=== PATIENT | female | born 2000 | race Caucasian/White ===

== ENCOUNTER 2018-01-03 02:22 | Inpatient (IN) | payer BC ==
[2018-01-03] MEDS ORDERED: Sodium Chloride 0.9% 10 ML Syringe FLUSH PRN (03:14)
[2018-01-03] MEDS ORDERED: Nalbuphine 20 MG/ML 1 ML Syringe IVPUSH PRN (03:14)
--- NOTE | 2018-01-03 06:08 | PCM.LDHP ---
L&D History of Present Illness - General Date of Service: 01/03/18 Admit Problem/Dx: Admission Diagnosis/Problem Admission Diagnosis/Problem Source of Information: Patient History Limitations: Reports: No Limitations - History of Present Illness Introduction:: 17 year old at 38w3 here for SROM clear fluid at home at 12:20 [place] time. PNC with Dr. 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: - Past Surgical History HEENT Surgical History: Reports: Oral Surgery Musculoskeletal Surgical History: Reports: Other (See Below) Other Musculoskeletal Surgeries/Procedures:: acl repair Social & Family History - Family History Family Medical History: Noncontributory - Tobacco Use Smoking Status *Q: Never Smoker Second Hand Smoke Exposure: No - Caffeine Use Caffeine Use: Reports: None - Recreational Drug Use Recreational Drug Use: No H&P Review of Systems - Review of Systems: Review Of Systems: See Below General: Reports: No Symptoms HEENT: Reports: No Symptoms Pulmonary: Reports: No Symptoms Cardiovascular: Reports: No Symptoms Gastrointestinal: Reports: No Symptoms Genitourinary: Reports: No Symptoms Musculoskeletal: Reports: No Symptoms Skin: Reports: No Symptoms Psychiatric: Reports: No Symptoms Neurological: Reports: No Symptoms Hematologic/Lymphatic: Reports: No Symptoms Immunologic: Reports: No Symptoms L&D Exam - Exam Exam: See Below - Vital Signs Vital Signs: Last Vital Signs Temp 36.9 C 01/03/18 03:14 Pulse 112 H 01/03/18 03:14 Resp 16 01/03/18 03:14 BP 133/85 01/03/18 03:14 Pulse Ox Weight: 83.007 kg - OB Specific Contraction Intensity: Mild to Moderate Heart Rate (FHR) Variability: Absent; Amplitude Undetectable Presentation: Vertex - Lopez Score Lopez Score Cervix Position: Posterior Lopez Score Consistency: Medium Lopez Score Effacement: 0-30% Lopez Score Dilation: 3-4 cm Lopez Score Infant's Station: -2 Lopez Score Total: 4 - Exam General: Alert, Oriented HEENT: PERRLA, Conjunctiva Clear, EACs Clear, EOMI, Hearing Intact, Mucosa Moist & [place], Nares Patent, Normal Nasal Septum, Posterior Pharynx Clear, TMs Clear Neck: Supple, Trachea Midline Lungs: Clear to Auscultation, Normal Respiratory Effort Cardiovascular: Regular Rate, Regular Rhythm GI/Abdominal Exam: Normal Bowel Sounds, Soft, Non-Tender, No Organomegaly, No Distention Genitourinary: Normal external exam, Normal bimanual exam, Normal speculum exam Back Exam: Normal Inspection, Full Range of Motion Extremities: Normal Inspection, Normal Range of Motion, Non-Tender, No Pedal Edema, Normal Capillary Refill Skin: Warm, Dry, Intact Neurological: Cranial Nerves Intact, Reflexes Equal Bilateral Psychiatric: Alert, Normal Affect, Normal Mood - Patient Data Lab Results Last 24 hrs: Laboratory Results - last 24 hr 01/03/18 Range/Units 03:40 WBC 14.58 H (3.98-10.04) K/mm3 RBC 4.29 (3.98-5.22) M/mm3 Hgb 10.5 L (11.2-15.7) gm/L Hct 33.2 L (34.1-44.9) % MCV 77.4 L (79.4-94.8) fl MCH 24.5 L (25.6-32.2) pg MCHC 31.6 L (32.2-35.5) g/dl RDW Std Deviation 41.9 (36.4-46.3) fL Plt Count 257 (182-369) K/mm3 MPV 9.6 (9.4-12.3) fl Neut % (Auto) 68.6 (34.0-71.1) % Lymph % (Auto) 15.9 L (19.3-51.7) % [place] % (Auto) 10.6 (4.7-12.5) % Eos % (Auto) 2.3 (0.7-5.8) Baso % (Auto) 0.5 (0.1-1.2) % Neut # (Auto) 9.99 H (1.56-6.13) K/mm3 Lymph # (Auto) 2.32 (1.18-3.74) K/mm3 [place] # (Auto) 1.55 H (0.24-0.36) K/mm3 Eos # (Auto) 0.34 (0.04-0.36) K/mm3 Baso # (Auto) 0.07 (0.01-0.08) K/mm3 Manual Slide Review Abnormal smear Result Diagrams: 01/03/18 03:40 Problem List Initiated/Reviewed/Updated: Yes Orders Last 24hrs: Active Orders 24 hr Category Date Time Status Activity as Tolerated [RC] PFP Care 01/03/18 03:14 Active Communication Order [RC] ASDIRECTED Care 01/03/18 03:14 Active Heart Tones [RC] ASDIRECTED Care 01/03/18 03:14 Active Notify Provider [RC] PFP Care 01/03/18 03:14 Active Notify Provider [RC] PRN Care 01/03/18 03:14 Active Peripheral IV Care [RC] . DIRECTED Care 01/03/18 03:14 Active Vital Signs [RC] PER UNIT ROUTINE Care 01/03/18 03:14 Active Lactated Ringers [Ringers, Lactated] 1,000 ml Med 01/03/18 03:15 Active IV ASDIRECTED Nalbuphine [Nubain] Med 01/03/18 03:14 Active 10 mg IVPUSH Q2H PRN Oxytocin/Lactated Ringers [Pitocin in LR 10 Units/1,000 Med 01/03/18 03:15 Active ML] 10 unit in 1,000 ml IV TITRATE Sodium Chloride 0.9% [Saline Flush] Med 01/03/18 03:14 Active 10 ml FLUSH ASDIRECTED PRN Electronic Heart Tones Ext w TOCO [WOMSER] Oth 01/03/18 03:14 Ordered Routine Electronic Heart Tones Internal [WOMSER] Per Unit Oth 01/03/18 03:14 Ordered Routine Peripheral IV Insertion Adult [OM.PC] Routine Oth 01/03/18 03:14 Ordered Resuscitation Status Routine Resus Stat 01/03/18 03:14 Ordered Medication Orders Lactated Ringer's (Ringers, Lactated) 1,000 mls @ 100 mls/hr IV ASDIRECTED CRAIG Oxytocin/Lactated Ringer's (Pitocin In Lr 10 Units/1,000 Ml) 10 unit in 1,000 mls @ 12 mls/hr IV TITRATE CRAIG; Protocol Nalbuphine HCl (Nubain) 10 mg IVPUSH Q2H PRN PRN Reason: Pain (moderate 4-6) Sodium Chloride (Saline Flush) 10 ml FLUSH ASDIRECTED PRN PRN Reason: Keep Vein Open Assessment/Plan Comment:: 17 year old with SROM. -Regular breakfast -Initiate pitocin when room available. - Ekaterina well but appear not significantly painful.
[2018-01-03] MEDS: Lactated Ringers 1,000 ML IV SCH ×2 (08:40→12:54)
[2018-01-03] MEDS: Oxytocin/Lactated Ringers 10 UNIT/1,000 ML BAG IV SCH (08:41)
[2018-01-03] MEDS ORDERED: ePHEDrine 50 MG/ML SDV IVPUSH PRN (12:15)
--- NOTE | 2018-01-03 12:19 | PCM.PREANE ---
Preanesthetic Assessment - Procedure Proposed Procedure: KAMLESH - Anesthesia/Transfusion/Family Hx Anesthesia History: Prior Anesthesia Without Reaction Family History of Anesthesia Reaction: No Transfusion History: No Prior Transfusion(s) Additional History: Scoliosis - Review of Systems General: No Symptoms Pulmonary: Other (Asthma, uses inhalers PRN) Cardiovascular: No Symptoms Gastrointestinal: No Symptoms Neurological: No Symptoms Other: Reports: None - Physical Assessment NPO Status Date: 01/03/18 NPO Status Time: 11:00 Pulse: 121 O2 Sat by Pulse Oximetry: 98 Respiratory Rate: 16 Blood Pressure: 137/89 Temperature: 37.0 C Vital Signs: Last Vital Signs Temp 36.9 C 01/03/18 03:14 Pulse 112 H 01/03/18 03:14 Resp 16 01/03/18 03:14 BP 133/85 01/03/18 03:14 Pulse Ox Height: 1.63 m Weight: 83.007 kg ASA Class: 2 Mental Status: Alert & Oriented x3 Airway Class: Mallampati = 1 Dentition: Reports: Normal Dentition Thyro-Mental Finger Breadths: 3 Mouth Opening Finger Breadths: 3 ROM/Head Extension: Full Lungs: Clear to Auscultation, Normal Respiratory Effort Cardiovascular: Regular Rate, Regular Rhythm - Lab Values: Laboratory Last Values WBC 14.58 K/mm3 (3.98-10.04) H 01/03/18 03:40 RBC 4.29 M/mm3 (3.98-5.22) 01/03/18 03:40 Hgb 10.5 gm/L (11.2-15.7) L 01/03/18 03:40 Hct 33.2 % (34.1-44.9) L 01/03/18 03:40 MCV 77.4 fl (79.4-94.8) L 01/03/18 03:40 MCH 24.5 pg (25.6-32.2) L 01/03/18 03:40 MCHC 31.6 g/dl (32.2-35.5) L 01/03/18 03:40 RDW Std Deviation 41.9 fL (36.4-46.3) 01/03/18 03:40 Plt Count 257 K/mm3 (182-369) 01/03/18 03:40 MPV 9.6 fl (9.4-12.3) 01/03/18 03:40 Neut % (Auto) 68.6 % (34.0-71.1) 01/03/18 03:40 Lymph % (Auto) 15.9 % (19.3-51.7) L 01/03/18 03:40 [place] % (Auto) 10.6 % (4.7-12.5) 01/03/18 03:40 Eos % (Auto) 2.3 (0.7-5.8) 01/03/18 03:40 Baso % (Auto) 0.5 % (0.1-1.2) 01/03/18 03:40 Neut # (Auto) 9.99 K/mm3 (1.56-6.13) H 01/03/18 03:40 Lymph # (Auto) 2.32 K/mm3 (1.18-3.74) 01/03/18 03:40 [place] # (Auto) 1.55 K/mm3 (0.24-0.36) H 01/03/18 03:40 Eos # (Auto) 0.34 K/mm3 (0.04-0.36) 01/03/18 03:40 Baso # (Auto) 0.07 K/mm3 (0.01-0.08) 01/03/18 03:40 Manual Slide Review Abnormal smear 01/03/18 03:40 - Allergies Allergies/Adverse Reactions: Allergies Allergy/AdvReac Type Severity Reaction Status Date / Time ibuprofen [From Motrin] Allergy Hives Verified 05/12/17 14:51 CDT - Blood Blood Available: No Product(s) Available: None - Anesthesia Plan Pre-Op Medication Ordered: None - Acknowledgements Anesthesia Type Planned: Epidural Pt an Appropriate Candidate for the Planned Anesthesia: Yes Alternatives and Risks of Anesthesia Discussed w Pt/Guardian: Yes Pt/Guardian Understands and Agrees with Anesthesia Plan: Yes PreAnesthesia Questionnaire - Past Health History Medical/Surgical History: Denies Medical/Surgical History Respiratory History: Reports: Asthma 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: - Past Surgical History HEENT Surgical History: Reports: Oral Surgery Musculoskeletal Surgical History: Reports: Other (See Below) Other Musculoskeletal Surgeries/Procedures:: acl repair - SUBSTANCE USE Smoking Status *Q: Never Smoker Second Hand Smoke Exposure: No Recreational Drug Use History: No - HOME MEDS Home Medications: Home Meds Albuterol [Proventil HFA] 2 puff INH DAILY PRN 01/03/18 [History] Vits #93/Iron Fum/FA [ Formula Tablet] 1 tab PO DAILY 01/03/18 [History] - CURRENT (IN HOUSE) MEDS Current Meds: Current Medications Ephedrine Sulfate (Ephedrine Sulfate) 5 mg IVPUSH ASDIRECTED PRN PRN Reason: Hypotension Fentanyl (Sublimaze) 100 mcg EPIDUR Q3H PRN PRN Reason: Pain Fentanyl/Bupivacaine HCl (Fentanyl/Bupivacaine/Ns 2 Mcg-0.125% 100 Ml) 100 ml EPIDUR ASDIRECTED CRAIG Lactated Ringer's (Ringers, Lactated) 1,000 mls @ 100 mls/hr IV ASDIRECTED CRAIG Last Admin: 01/03/18 08:40 Dose: 100 mls/hr Oxytocin/Lactated Ringer's (Pitocin In Lr 10 Units/1,000 Ml) 10 unit in 1,000 mls @ 12 mls/hr IV TITRATE CRAIG; Protocol Last Titration: 01/03/18 10:46 Dose: 6 munits/min, 36 mls/hr Nalbuphine HCl (Nubain) 10 mg IVPUSH Q2H PRN PRN Reason: Pain (moderate 4-6) Sodium Chloride (Saline Flush) 10 ml FLUSH ASDIRECTED PRN PRN Reason: Keep Vein Open
[2018-01-03] MEDS: Bupivacaine/fentaNYL/NS 100 ML Bag EPIDUR SCH ×3 (12:45→23:54)
[2018-01-03] MEDS: fentaNYL 100 MCG/2 ML SDV EPIDUR PRN (12:45)
[2018-01-03] MEDS ORDERED: Ondansetron 4 MG/2 ML SDV IVPUSH PRN ×2 (14:05→20:38)
[2018-01-04] MEDS ORDERED: Bupivacaine 0.25% 10 ML SDV ONE (01:00)
[2018-01-04] MEDS ORDERED: Lidocaine 1.5% with EPINEPHrine 1:200,000 5 ML Amp ONE (01:00)
[2018-01-04] MEDS: fentaNYL 100 MCG/2 ML SDV EPIDUR PRN ×2 (01:31→05:06)
[2018-01-04] MEDS: Oxytocin/Lactated Ringers 10 UNIT/1,000 ML BAG IV SCH ×2 (03:19→11:23)
[2018-01-04] MEDS: Bupivacaine/fentaNYL/NS 100 ML Bag EPIDUR SCH (06:23)
--- NOTE | 2018-01-04 07:39 | PCM.PNLD ---
Labor Progress Note - VS & Meds Vital Signs: Last Vital Signs Temp 37.0 C 01/03/18 12:19 Pulse 121 H 01/03/18 12:19 Resp 16 01/03/18 12:19 BP 137/89 01/03/18 12:19 Pulse Ox 98 01/03/18 12:19 Active Medications: Current Medications Ephedrine Sulfate (Ephedrine Sulfate) 5 mg IVPUSH ASDIRECTED PRN PRN Reason: Hypotension Fentanyl (Sublimaze) 100 mcg EPIDUR Q3H PRN PRN Reason: Pain Last Admin: 01/04/18 05:06 Dose: 100 mcg Fentanyl/Bupivacaine HCl (Fentanyl/Bupivacaine/Ns 2 Mcg-0.125% 100 Ml) 100 ml EPIDUR ASDIRECTED CRAIG Last Admin: 01/04/18 06:23 Dose: 100 ml Lactated Ringer's (Ringers, Lactated) 1,000 mls @ 100 mls/hr IV ASDIRECTED CRAIG Last Admin: 01/03/18 12:54 Dose: 100 mls/hr Oxytocin/Lactated Ringer's (Pitocin In Lr 10 Units/1,000 Ml) 10 unit in 1,000 mls @ 12 mls/hr IV TITRATE CRAIG; Protocol Last Admin: 01/04/18 03:19 Dose: 17 munits/min, 102 mls/hr Nalbuphine HCl (Nubain) 10 mg IVPUSH Q2H PRN PRN Reason: Pain (moderate 4-6) Ondansetron HCl (Zofran) 4 mg IVPUSH Q4H PRN PRN Reason: Nausea Last Admin: 01/03/18 20:45 Dose: 4 mg Sodium Chloride (Saline Flush) 10 ml FLUSH ASDIRECTED PRN PRN Reason: Keep Vein Open Discontinued Medications Ondansetron HCl (Zofran) 4 mg IVPUSH Q8H PRN PRN Reason: Nausea Last Admin: 01/03/18 15:53 Dose: 4 mg - Uterine Contractions Contraction Intensity: Mild to Moderate - Monitoring Heart Rate (FHR) Variability: Absent; Amplitude Undetectable Strip Review: Category I - Vaginal Exam Cervical Position: Posterior - Labor Progress (Free Text) Labor Progress: Now able to start pitocin this am. Continued leaking of clear fluid. Anticipate unless otherwise indicated
--- NOTE | 2018-01-04 07:41 | PCM.PNLD ---
Labor Progress Note - VS & Meds Vital Signs: Last Vital Signs Temp 37.0 C 01/03/18 12:19 Pulse 121 H 01/03/18 12:19 Resp 16 01/03/18 12:19 BP 137/89 01/03/18 12:19 Pulse Ox 98 01/03/18 12:19 Active Medications: Current Medications Ephedrine Sulfate (Ephedrine Sulfate) 5 mg IVPUSH ASDIRECTED PRN PRN Reason: Hypotension Fentanyl (Sublimaze) 100 mcg EPIDUR Q3H PRN PRN Reason: Pain Last Admin: 01/04/18 05:06 Dose: 100 mcg Fentanyl/Bupivacaine HCl (Fentanyl/Bupivacaine/Ns 2 Mcg-0.125% 100 Ml) 100 ml EPIDUR ASDIRECTED CRAIG Last Admin: 01/04/18 06:23 Dose: 100 ml Lactated Ringer's (Ringers, Lactated) 1,000 mls @ 100 mls/hr IV ASDIRECTED CRAIG Last Admin: 01/03/18 12:54 Dose: 100 mls/hr Oxytocin/Lactated Ringer's (Pitocin In Lr 10 Units/1,000 Ml) 10 unit in 1,000 mls @ 12 mls/hr IV TITRATE CRAIG; Protocol Last Admin: 01/04/18 03:19 Dose: 17 munits/min, 102 mls/hr Nalbuphine HCl (Nubain) 10 mg IVPUSH Q2H PRN PRN Reason: Pain (moderate 4-6) Ondansetron HCl (Zofran) 4 mg IVPUSH Q4H PRN PRN Reason: Nausea Last Admin: 01/03/18 20:45 Dose: 4 mg Sodium Chloride (Saline Flush) 10 ml FLUSH ASDIRECTED PRN PRN Reason: Keep Vein Open Discontinued Medications Ondansetron HCl (Zofran) 4 mg IVPUSH Q8H PRN PRN Reason: Nausea Last Admin: 01/03/18 15:53 Dose: 4 mg - Uterine Contractions Contraction Intensity: Moderate Uterine Resting Tone: Soft - Monitoring Monitor Mode: External Ultrasound Heart Rate (FHR) Variability: Absent; Amplitude Undetectable Strip Review: Category I - Vaginal Exam Dilation (cm): 5 Effacement (Percent): 80 Station: -4 Cervical Position: Posterior - Labor Progress (Free Text) Labor Progress: IUPC placed. doing well. Continue to increase pitocin until adequate contractions. Reassuring FHT
--- NOTE | 2018-01-04 07:42 | PCM.PNLD ---
Labor Progress Note - VS & Meds Vital Signs: Last Vital Signs Temp 37.0 C 01/03/18 12:19 Pulse 121 H 01/03/18 12:19 Resp 16 01/03/18 12:19 BP 137/89 01/03/18 12:19 Pulse Ox 98 01/03/18 12:19 Active Medications: Current Medications Ephedrine Sulfate (Ephedrine Sulfate) 5 mg IVPUSH ASDIRECTED PRN PRN Reason: Hypotension Fentanyl (Sublimaze) 100 mcg EPIDUR Q3H PRN PRN Reason: Pain Last Admin: 01/04/18 05:06 Dose: 100 mcg Fentanyl/Bupivacaine HCl (Fentanyl/Bupivacaine/Ns 2 Mcg-0.125% 100 Ml) 100 ml EPIDUR ASDIRECTED CRAIG Last Admin: 01/04/18 06:23 Dose: 100 ml Lactated Ringer's (Ringers, Lactated) 1,000 mls @ 100 mls/hr IV ASDIRECTED CRAIG Last Admin: 01/03/18 12:54 Dose: 100 mls/hr Oxytocin/Lactated Ringer's (Pitocin In Lr 10 Units/1,000 Ml) 10 unit in 1,000 mls @ 12 mls/hr IV TITRATE CRAIG; Protocol Last Admin: 01/04/18 03:19 Dose: 17 munits/min, 102 mls/hr Nalbuphine HCl (Nubain) 10 mg IVPUSH Q2H PRN PRN Reason: Pain (moderate 4-6) Ondansetron HCl (Zofran) 4 mg IVPUSH Q4H PRN PRN Reason: Nausea Last Admin: 01/03/18 20:45 Dose: 4 mg Sodium Chloride (Saline Flush) 10 ml FLUSH ASDIRECTED PRN PRN Reason: Keep Vein Open Discontinued Medications Ondansetron HCl (Zofran) 4 mg IVPUSH Q8H PRN PRN Reason: Nausea Last Admin: 01/03/18 15:53 Dose: 4 mg - Uterine Contractions Uterine Monitoring Mode: IUPC Contraction Intensity: Moderate Uterine Resting Tone: Soft - Monitoring Monitor Mode: External Ultrasound Heart Rate (FHR) Baseline: 145 Heart Rate (FHR) Variability: Absent; Amplitude Undetectable Strip Review: Category I - Vaginal Exam Dilation (cm): 9 Effacement (Percent): 100 Station: -4 Cervical Position: Posterior - Labor Progress (Free Text) Labor Progress: Epidural not controlling pain Anterior rim of cervix Anticipate
[2018-01-04] MEDS ORDERED: Lidocaine 1% 50 ML MDV ONE (10:06)
[2018-01-04] MEDS ORDERED: fentaNYL 100 MCG/2 ML SDV IVPUSH ONE (10:11)
--- NOTE | 2018-01-04 10:38 | PCM.SN ---
- Free Text/Narrative Note: Stage I - Patient presented with SROM. Progressed fairly slowly to complete with pitocin augmentation. Epidural for anesthesia. Stage II - of viable male, weight 7#9oz. Head delivered in controlled manner over intact perineum. Positive cry. APGARS 6/8. Body shoulders atraumatically. True knot in umbilical cord. Cord clamped and cut. Cord blood collected. Stage III - of intact placenta. 3VC. EBL 300. 2nd degree midline laceration repaired with 3-0 monocryl.
[2018-01-04] MEDS ORDERED: Benzocaine/Menthol 20%-0.5% Spray 56 GM Canister TOP PRN (11:24)
[2018-01-04] MEDS ORDERED: Lanolin 100% Cream 7 GM Tube TOP PRN (11:24)
[2018-01-04] MEDS ORDERED: Witch Hazel Medicated Pads 100/Jar TOP PRN (11:24)
[2018-01-04] MEDS ORDERED: Lidocaine 1% 50 ML MDV INJECT ONE (11:30)
[2018-01-04] MEDS: Acetaminophen 325 MG Tab PO PRN (12:33)
[2018-01-04] MEDS: Naproxen 500 MG Tab PO PRN (19:34)
[2018-01-05] MEDS: Acetaminophen 325 MG Tab PO PRN ×3 (00:08→18:30)
[2018-01-05] MEDS: Docusate Sodium 100 MG Cap PO PRN ×2 (00:08→19:29)
--- NOTE | 2018-01-05 10:33 | PCM.SN ---
- Free Text/Narrative Note: exam Afebrile, chest clear, uterus at umbilicus -1. No heavy vaginal bleeding. No leg cramping.
[2018-01-05] MEDS: Naproxen 500 MG Tab PO PRN ×2 (10:47→23:00)
--- NOTE | 2018-01-06 09:06 | PCM48HPAN ---
Post Anesthesia Note - EVALUATION WITHIN 48HRS OF ANESTHETIC Vital Signs in Normal Range: Yes Patient Participated in Evaluation: Yes Respiratory Function Stable: Yes Airway Patent: Yes Cardiovascular Function Stable: Yes Hydration Status Stable: Yes Pain Control Satisfactory: Yes Nausea and Vomiting Control Satisfactory: Yes Mental Status Recovered: Yes Pulse Rate: 79 Resp Rate: 16 Temperature: 36.7 C Blood Pressure: 124/78 - COMMENTS/OBSERVATIONS Free Text/Narrative:: no anesthesia complications noted
--- NOTE | 2018-01-06 09:39 | PCM.DCSUM1 ---
Discharge Summary - Hospital Course Free Text/Narrative:: [facility] Provider Simple Note Patient Name: KEAGAN MUNOZ Date of : 89 Patient Status: Inpatient Attending Provider: Florencia Cee Date: 01/04/18 10:34 Initialization Date: 01/04/18 10:34 - Free Text/Narrative Note: Stage I - Patient presented with SROM. Progressed fairly slowly to complete with pitocin augmentation. Epidural for anesthesia. Stage II - of viable male, weight 7#9oz. Head delivered in controlled manner over intact perineum. Positive cry. APGARS 6/8. Body shoulders atraumatically. True knot in umbilical cord. Cord clamped and cut. Cord blood collected. Stage III - of intact placenta. 3VC. EBL 300. 2nd degree midline laceration repaired with 3-0 monocryl. HPI Initial Comments: [facility] Provider Simple Note Patient Name: EKAGAN MUNOZ Date of : [birth year] Patient Status: Inpatient Attending Provider: Florencia Cee Date: 01/04/18 10:34 Initialization Date: 01/04/18 10:34 - Free Text/Narrative Note: Stage I - Patient presented with SROM. Progressed fairly slowly to complete with pitocin augmentation. Epidural for anesthesia. Stage II - of viable male, weight 7#9oz. Head delivered in controlled manner over intact perineum. Positive cry. APGARS 6/8. Body shoulders atraumatically. True knot in umbilical cord. Cord clamped and cut. Cord blood collected. Stage III - of intact placenta. 3VC. EBL 300. 2nd degree midline laceration repaired with 3-0 monocryl. Brief History: [facility] . Provider Simple Note. Patient Name : KEAGAN MUNOZical Record Number: [id number]. Date of : Patient Status: Inpatient. Attending Provider: Florencia CeeAccount Number: [id number]. Date: 01/04/18 10:34Initialization Date: 01/04/18 10:34. - Free Text/Narrative. Note: Stage I - Patient presented with SROM. Progressed fairly slowly to complete with pitocin augmentation. Epidural for anesthesia. Stage II - of viable male, weight 7#9oz. Head delivered in controlled manner over intact perineum. Positive cry. APGARS 6/8. Body shoulders atraumatically. True knot in umbilical cord. Cord clamped and cut. Cord blood collected. Stage III - of intact placenta. 3VC. EBL 300. 2nd degree midline laceration repaired with 3-0 monocryl. Diagnosis: Stroke: No - Discharge Data Discharge Date: 01/06/18 Discharge Disposition: Home, Self-Care 01 Condition: Good - Discharge Diagnosis/Problem(s) (1) 38 weeks gestation of SNOMED Code(s): 45669418 ICD Code: Z3A.38 - 38 WEEKS GESTATION OF Status: Acute Current Visit: Yes (2) Anemia-delivered w/ complication SNOMED Code(s): 38483047, 322444194 ICD Code: O99.03 - ANEMIA COMPLICATING THE PUERPERIUM Status: Acute Current Visit: Yes (3) Second degree laceration of perineum, delivered, current hospitalization SNOMED Code(s): 321305115 ICD Code: O70.1 - SECOND DEGREE PERINEAL LACERATION DURING DELIVERY Status : Acute Current Visit: Yes - Patient Summary/Data Complications: none Consults: none Hospital Course: uneventful - Patient Instructions Diet: Regular Diet as Tolerated Driving: Do Not Drive (x48 hrs) Showering/Bathing: May Shower Notify Provider of: Fever, Increased Pain, Swelling and Redness, Drainage, Nausea and/or Vomiting - Discharge Plan Home Medications: Home Meds Albuterol [Proventil HFA] 2 puff INH DAILY PRN 01/03/18 [History] Vits #93/Iron Fum/FA [ Formula Tablet] 1 tab PO DAILY 01/03/18 [History] Referrals: Jolly Trujillo MD [Physician] - - Discharge Summary/Plan Comment DC Time >30 min.: No - Patient Data Vitals - Most Recent: Last Vital Signs Temp 98.1 F 01/06/18 09:06 Pulse 79 01/06/18 09:06 Resp 16 01/06/18 09:06 BP 124/78 01/06/18 09:06 Pulse Ox 98 01/06/18 05:32 Weight - Most Recent: 183 lb Med Orders - Current: Current Medications Acetaminophen (Tylenol) 650 mg PO Q4H PRN PRN Reason: mild pain or fever Last Admin: 01/05/18 18:30 Dose: 650 mg Benzocaine/Menthol (Dermoplast Pain Relief [place]) 0 gm TOP ASDIRECTED PRN PRN Reason: Perineal Comfort Measure Last Admin: 01/04/18 12:33 Dose: 1 can Docusate Sodium (Colace) 100 mg PO BID PRN PRN Reason: Constipation Last Admin: 01/05/18 19:29 Dose: 100 mg Emollient Ointment (Lansinoh Hpa) 0 gm TOP ASDIRECTED PRN PRN Reason: Sore Nipples Last Admin: 01/05/18 21:34 Dose: 1 tube Naproxen (Naprosyn) 500 mg PO Q12HR PRN PRN Reason: Pain Last Admin: 01/05/18 23:00 Dose: 500 mg Witch Edie (Tucks) 1 pad TOP ASDIRECTED PRN PRN Reason: Hemorrhoid pain Last Admin: 01/04/18 12:33 Dose: 1 box Discontinued Medications Bupivacaine HCl (Sensorcaine-Mpf 0.25%) 30 ml .ROUTE .STK-MED ONE Stop: 01/04/18 01:01 Ephedrine Sulfate (Ephedrine Sulfate) 5 mg IVPUSH ASDIRECTED PRN PRN Reason: Hypotension Fentanyl (Sublimaze) 100 mcg EPIDUR Q3H PRN PRN Reason: Pain Last Admin: 01/04/18 05:06 Dose: 100 mcg Fentanyl (Sublimaze) 50 mcg IVPUSH ONETIME ONE Stop: 01/04/18 10:12 Last Admin: 01/04/18 10:15 Dose: 50 mcg Fentanyl/Bupivacaine HCl (Fentanyl/Bupivacaine/Ns 2 Mcg-0.125% 100 Ml) 100 ml EPIDUR ASDIRECTED [facility] Last Admin: 01/04/18 06:23 Dose: 100 ml Lactated Ringer's (Ringers, Lactated) 1,000 mls @ 100 mls/hr IV ASDIRECTED [facility] Last Infusion: 01/04/18 09:55 Dose: Infused Oxytocin/Lactated Ringer's (Pitocin In Lr 10 Units/1,000 Ml) 10 unit in 1,000 mls @ 12 mls/hr IV TITRATE CRAIG; Protocol Last Admin: 01/04/18 11:23 Dose: 500 munits/min, 3,000 mls/hr Lidocaine HCl (Xylocaine 1%) Confirm Administered Dose 50 ml .ROUTE .[employer] ONE Stop: 01/04/18 10:07 Last Admin: 01/04/18 17:09 Dose: Not Given Lidocaine HCl (Xylocaine 1%) 50 ml INJECT ONETIME ONE Stop: 01/04/18 11:31 Last Admin: 01/04/18 10:15 Dose: 50 ml Lidocaine/Epinephrine (Xylocaine-Mpf 1.5% W/Epinephrine 1:200,000) 10 ml .ROUTE .[employer] ONE Stop: 01/04/18 01:01 Nalbuphine HCl (Nubain) 10 mg IVPUSH Q2H PRN PRN Reason: Pain (moderate 4-6) Ondansetron HCl (Zofran) 4 mg IVPUSH Q8H PRN PRN Reason: Nausea Last Admin: 01/03/18 15:53 Dose: 4 mg Ondansetron HCl (Zofran) 4 mg IVPUSH Q4H PRN PRN Reason: Nausea Last Admin: 01/03/18 20:45 Dose: 4 mg Sodium Chloride (Saline Flush) 10 ml FLUSH ASDIRECTED PRN PRN Reason: Keep Vein Open
[2018-01-06] MEDS: Naproxen 500 MG Tab PO PRN (10:40)
== END 2018-01-06 10:45 | disposition home or self-care (01) | DRG 560 ==
LOC: JD.OBCHECK 02:22 → JD.OB 02:35 → JD.OBCHECK 08:59 → JD.OB 09:00 → OBSVTOIN 01-04 09:55 → JD.OB 01-04 10:00
PROVIDERS: ADMIT Obstetrics & Gynecology; ATTEND Obstetrics & Gynecology
PROC: 10E0XZZ Delivery of Products of Conception, External Approach (ICD-10-PCS; principal; 2018-01-04)
PROC: 0KQM0ZZ Repair Perineum Muscle, Open Approach (ICD-10-PCS; 2018-01-04)
PROC: 00HU33Z Insertion of Infusion Device into Spinal Canal, Percutaneous Approach (ICD-10-PCS; 2018-01-04)
PROC: 3E0R3BZ Introduction of Anesthetic Agent into Spinal Canal, Percutaneous Approach (ICD-10-PCS; 2018-01-04)
DX: O42.02 Full-term premature rupture of membranes, onset of labor within 24 hours of rupture (principal); Z3A.38 38 weeks gestation of pregnancy; Z37.0 Single live birth; O99.52 Diseases of the respiratory system complicating childbirth; J45.909 Unspecified asthma, uncomplicated; O69.2XX0 Labor and delivery complicated by other cord entanglement, with compression, not applicable or unspecified; O70.1 Second degree perineal laceration during delivery; O99.03 Anemia complicating the puerperium; Z88.8 Allergy status to other drugs, medicaments and biological substances
CPT/HCPCS: 36415; 51702; 51703; 59025; 59300; 59409; 85025; 86592; A9270-GY; J2405; J2590; J3010; J7120

== ENCOUNTER 2020-12-18 00:33 | Inpatient (IN) | payer MEDICAID ==
[2020-12-18] MEDS ORDERED: Nalbuphine 10 MG/1 ML Vial IVPUSH PRN (01:18)
[2020-12-18] MEDS ORDERED: Ampicillin 2 GM in Sodium Chloride 0.9% 100 ML IV ONE (01:18)
[2020-12-18] MEDS ORDERED: Sodium Chloride 0.9% 10 ML Syringe FLUSH PRN (01:18)
[2020-12-18] MEDS ORDERED: Acetaminophen 325 MG Tab PO PRN (01:28)
[2020-12-18] MEDS ORDERED: Oxytocin/Lactated Ringers 10 UNIT/1,000 ML BAG IV SCH ×3 (01:30→16:26)
[2020-12-18] MEDS: Ondansetron 4 MG/2 ML SDV IVPUSH PRN ×2 (02:29→10:13)
[2020-12-18] MEDS: Ampicillin 1 GM in Sodium Chloride 0.9% 100 ML IV SCH ×3 (06:06→14:10)
--- NOTE | 2020-12-18 08:24 | PCM.LDHP ---
L&D History of Present Illness - General Date of Service: 12/18/20 Admit Problem/Dx: Patient Status Order with Admit Dx/Problem 12/18/20 00:41 Patient Status [ADT] Routine 12/18/20 01:19 Patient Status [ADT] Routine Admission Diagnosis/Problem Admission Diagnosis/Problem Source of Information: Patient History Limitations: Reports: No Limitations - History of Present Illness Introduction:: Dia Lea is a 20-year-old -0-0-1 female at 38 weeks 6 days ([place] 12/26/2020) by a 6-week ultrasound who presents with regular contractions that started in the evening of 12/09/2020. They continued throughout the evening and were about 2 to 3 minutes apart and quite painful. The contractions were lasting for 30 to 60 seconds per patient's report. She states that they were consistent for several hours and presented to labor and delivery for evaluation. She denies any leaking of fluid or vaginal bleeding. She reports that she did have some blood on the toilet paper with wiping this morning. She reports good movement. Timing/Duration: Reports: constant/continuous (Contractions about every 2 to 3 minutes and were quite painful) Location, : Reports: Lower back, Pelvic Quality: Reports: Pressure, Throbbing Severity: Severe Pain Score: 7 Worsens with: Reports: None Associated Symptoms: Denies: vaginal bleeding, vaginal discharge, vaginal fluid Present Illness Comments:: Dia Lea is a 20-year-old -0-0-1 female at 38 weeks 6 days ([place] 12/26/2020) by a 6-week ultrasound who presents with regular contractions that started in the evening of 12/09/2020. She has had routine care with Dr. Cee starting at 6 weeks gestational age. She denies any complications during this . She had Tdap vaccine done on 10/15/2020. She reports that she had vaginal yeast infections and urinary tract infections during the but was treated for these and has not had any hospitalizations as a result of the urinary tract infections. She had a chlamydia infection prior to that was treated and tested negative per her report. Her care has been with Dr. Cee and is complicated by: * History of preeclampsia in previous . Reports that it was mild preeclampsia and did not have any significant complications. * History of depression after her last . Not currently on treatment for depression at this time. * Rubella equivocal and should be offered MMR vaccine after delivery * History of asthma and is not requiring albuterol treatments at this time * History of chlamydia x2 in 2016 and 2019. Reports that she was diagnosed with chlamydia prior to and was treated and tested negative. 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 G1: 01/04/2018, 38 weeks 3 days, , 7 pounds 9 ounces, male infant, induced for mild preeclampsia G2: Current labs Blood type: A+ Antibody screen: Negative First trimester hematocrit/hemoglobin: 37.4%/13.0 on 06/08/2020 Platelets: 280 on 06/08/2020 Rubella status: Equivocal Hepatitis B surface antigen: Negative RPR: Negative Hepatitis C: Negative HIV: Negative Gonorrhea: Negative Chlamydia: Positive on 01/27/2020, patient reports treated and tested negative after this test One hour glucose tolerance test: 142 Second trimester hemoglobin: 11.3 on 10/05/2020 Platelets: 260 on 10/05/2020 3-hour glucose test: Negative per report GBS status: Positive GBS bacteriuria on urine culture on 12/01/2020 - Related Data Allergies/Adverse Reactions: Allergies Allergy/AdvReac Type Severity Reaction Status Date / Time ibuprofen [From Motrin] Allergy Anaphylactic Verified 12/18/20 03:17 Shock Home Medications: Home Meds Albuterol [Proventil HFA] 2 puff INH DAILY PRN 01/03/18 [History] Vits #93/Iron Fum/FA [ Formula Tablet] 1 tab PO DAILY 01/03/18 [History] Fluticasone Propionate [Flovent HFA] 1 puff INH BID PRN 12/01/20 [History] cephALEXin [Keflex] 500 mg PO WITHMEALSANDBED 12/18/20 [History] Past Medical History Respiratory History: Reports: Asthma Genitourinary History: Reports: UTI, Recurrent Other Genitourinary History: UTI and yeast infection MECHANICAL TEST ENGINEER History: Reports: : 2 Para: 1 Neurological History: Reports: Seizure Other Neuro History: Hx of seizures - Past Surgical History HEENT Surgical History: Reports: Oral Surgery Other HEENT Surgeries/Procedures: wisdom teeth Musculoskeletal Surgical History: Reports: Other (See Below) Other Musculoskeletal Surgeries/Procedures:: acl repair. Scoliosis Social & Family History - Family History Family Medical History: No Pertinent Family History - Tobacco Use Tobacco Use Status *Q: Never Tobacco User Second Hand Smoke Exposure: No - Tobacco Core Measures Tobacco Use/Smoking Within Last 30 Days: No Smokeless Tobacco Use in Last 30 Days: No - Caffeine Use Caffeine Use: Reports: None - Alcohol Use Alcohol Use History: No - Recreational Drug Use Recreational Drug Use: No - Living Situation & Occupation Living situation: Reports: , with Spouse, with Family H&P Review of Systems - Review of Systems: Review Of Systems: See Below General: Denies: Fever, Chills, Malaise, Weakness, Fatigue HEENT: Denies: Headaches, Rhinitis, Post Nasal Drip, Sinus Congestion, Sore Throat, Visual Changes Pulmonary: Denies: Shortness of Breath, Wheezing, Pleuritic Chest Pain, Cough Cardiovascular: Denies: Chest Pain, Palpitations, Dyspnea on Exertion, Orthopnea Gastrointestinal: Denies: Abdominal Pain, Constipation, Diarrhea, Nausea, Vomiting Genitourinary: Denies: Dysuria, Frequency, Burning, Pain, Urgency Musculoskeletal: Reports: Back Pain (And hip pain of ) Skin: Denies: Rash, Lesions Psychiatric: Denies: Depression, Anxiety L&D Exam - Exam Exam: See Below - Vital Signs Vital Signs: Last Vital Signs Temp 37.0 C 12/18/20 00:41 Pulse 107 H 12/18/20 00:41 Resp 16 12/18/20 00:41 BP 126/70 12/18/20 00:41 Pulse Ox 99 12/18/20 00:41 Weight: 87.09 kg - OB Specific Contraction Duration (sec): 45-75 Contraction Frequency (min): 3-5 Contraction Intensity: Moderate to Strong Movement: Active Heart Tones: Present Heart Tones per Min: 135 (+15 x 15 accelerations, no decelerations) Heart Rate (FHR) Variability: Moderate (6-25 bmp) Presentation: Vertex Estimated Weight: 7.5-8 lbs by Tai - Lopez Score Lopez Score Cervix Position: Midposition Lopez Score Consistency: Soft Lopez Score Effacement: >80% (90%) Lopez Score Dilation: > 5 cm (6 cm) Lopez Score Infant's Station: -2 Lopez Score Total: 10 - Exam General: Alert, Oriented HEENT: Conjunctiva Clear, EOMI Neck: Supple, Trachea Midline Lungs: Clear to Auscultation, Normal Respiratory Effort Cardiovascular: Regular Rate, Regular Rhythm GI/Abdominal Exam: Soft, Non-Tender, No Distention, Other (Gravid). No: Guarding, Rigid, Rebound Genitourinary: Normal external exam Extremities: Normal Inspection, Non-Tender, Pedal Edema (trace in bilateral lower extremities) Skin: Warm, Dry, Intact Psychiatric: Alert, Normal Affect, Normal Mood - Patient Data Lab Results Last 24 hrs: Laboratory Results - last 24 hr 12/18/20 12/18/20 12/18/20 Range/Units 01:42 01:45 01:45 WBC 12.49 H (3.98-10.04) K/mm3 RBC 4.19 (3.98-5.22) M/mm3 Hgb 10.6 L (11.2-15.7) gm/dl Hct 33.3 L (34.1-44.9) % MCV 79.5 (79.4-94.8) fl MCH 25.3 L (25.6-32.2) pg MCHC 31.8 L (32.2-35.5) g/dl RDW Std Deviation 43.6 (36.4-46.3) fL Plt Count 246 (182-369) K/mm3 MPV 10.0 (9.4-12.3) fl Neut % (Auto) 67.0 (34.0-71.1) % Lymph % (Auto) 21.4 (19.3-51.7) % [place] % (Auto) 8.5 (4.7-12.5) % Eos % (Auto) 1.8 (0.7-5.8) Baso % (Auto) 0.3 (0.1-1.2) % Neut # (Auto) 8.37 H (1.56-6.13) K/mm3 Lymph # (Auto) 2.67 (1.18-3.74) K/mm3 [place] # (Auto) 1.06 H (0.24-0.36) K/mm3 Eos # (Auto) 0.22 (0.04-0.36) K/mm3 Baso # (Auto) 0.04 (0.01-0.08) K/mm3 Manual Slide Review Abnormal smear SARS-CoV-2 RNA (JOVANI) Negative (NEGATIVE) Blood Type A POSITIVE Gel Antibody Screen Negative Result Diagrams: 12/18/20 01:45 - Problem List (1) GBS bacteriuria SNOMED Code(s): 69910465 ICD Code: R82.71 - BACTERIURIA Status: Acute Current Visit: Yes (2) History of maternal Chlamydia infection, currently in third trimester SNOMED Code(s): 64162458, 63211974 ICD Code: O09.293 - SUPRVSN OF PREG W POOR REPRODCTV OR OBSTET HX, THIRD TRI Status: Acute Current Visit: Yes (3) History of depression SNOMED Code(s): 104871558 ICD Code: Z87.59 - PERSONAL HISTORY OF COMP OF PREG, CHLDBRTH AND THE PUERP; Z86.59 - PERSONAL HISTORY OF OTHER MENTAL AND BEHAVIORAL DISORDERS Status: Acute Current Visit: Yes (4) History of depression, currently in third trimester SNOMED Code(s): 78239346 ICD Code: O99.891 - OTH DISEASES AND CONDITIONS COMPLICATING ; Z86.59 - PERSONAL HISTORY OF OTHER MENTAL AND BEHAVIORAL DISORDERS Status: Acute Current Visit: Yes (5) 38 weeks gestation of SNOMED Code(s): 28550026 ICD Code: Z3A.38 - 38 WEEKS GESTATION OF Status: Acute Current Visit: No (6) Rubella non-immune status, antepartum SNOMED Code(s): 803230025 ICD Code: O99.891 - OTH DISEASES AND CONDITIONS COMPLICATING ; Z28.3 - UNDERIMMUNIZATION STATUS Status: Acute Current Visit: Yes Problem List Initiated/Reviewed/Updated: Yes Orders Last 24hrs: Active Orders 24 hr Category Date Time Status Patient Status [ADT] Routine ADT 12/18/20 00:41 Active Patient Status [ADT] Routine ADT 12/18/20 01:19 Active Activity as Tolerated [RC] PFP Care 12/18/20 01:19 Active Communication Order [RC] ASDIRECTED Care 12/18/20 01:19 Active Heart Tones [RC] ASDIRECTED Care 12/18/20 01:19 Active Notify Provider [RC] PFP Care 12/18/20 01:19 Active Notify Provider [RC] PRN Care 12/18/20 01:19 Active Peripheral IV Care [RC] Q4HR Care 12/18/20 01:19 Active Vital Signs [RC] PER UNIT ROUTINE Care 12/18/20 00:41 Active Vital Signs [RC] PER UNIT ROUTINE Care 12/18/20 01:19 Active Regular Diet [DIET] Diet 12/18/20 Breakfast Active PATIENT RETYPE [BBK] Routine Lab 12/18/20 03:50 Ordered RAPID PLASMA REAGIN,RPR [CHEM] Routine Lab 12/18/20 01:45 Received Acetaminophen [TylenoL] Med 12/18/20 01:28 Active 650 mg PO Q4H PRN Ampicillin 1 gm Med 12/18/20 06:00 Active Sodium Chloride 0.9% [Normal Saline] 100 ml IV Q4H Lactated Ringers [Ringers, Lactated] 1,000 ml Med 12/18/20 01:30 Active IV ASDIRECTED Nalbuphine [Nubain] Med 12/18/20 01:18 Active 10 mg IVPUSH Q2H PRN Ondansetron [Zofran] Med 12/18/20 02:09 Active 4 mg IVPUSH Q8H PRN Oxytocin/Lactated Ringers [Pitocin in LR 10 Units/1,000 Med 12/18/20 01:30 Active ML] 10 unit in 1,000 ml IV CONTINUOUS Sodium Chloride 0.9% [Saline Flush] Med 12/18/20 01:18 Active 10 ml FLUSH ASDIRECTED PRN Electronic Heart Tones Ext w TOCO [WOMSER] Oth 12/18/20 01:19 Ordered Routine Electronic Heart Tones Internal [WOMSER] Per Unit Oth 12/18/20 01:19 Ordered Routine Peripheral IV Insertion Adult [OM.PC] Routine Oth 12/18/20 01:19 Ordered Resuscitation Status Routine Resus Stat 12/18/20 00:41 Ordered Medication Orders Acetaminophen (Acetaminophen 325 Mg Tab) 650 mg PO Q4H PRN PRN Reason: Headache/Pain Last Admin: 12/18/20 02:29 Dose: 650 mg Documented by: SEBASTIAN Lactated Ringer's (Ringers, Lactated) 1,000 mls @ 100 mls/hr IV ASDIRECTED CRAIG Ampicillin Sodium 1 gm/ Sodium (Chloride) 100 mls @ 200 mls/hr IV Q4H CRAIG Last Admin: 12/18/20 06:06 Dose: 200 mls/hr Documented by: SEBASTIAN Oxytocin/Lactated Ringer's (Pitocin In Lr 10 Units/1,000 Ml) 10 unit in 1,000 mls @ 500 mls/hr IV CONTINUOUS CRAIG Nalbuphine HCl (Nalbuphine 10 Mg/1 Ml Vial) 10 mg IVPUSH Q2H PRN PRN Reason: Pain Ondansetron HCl (Ondansetron 4 Mg/2 Ml Sdv) 4 mg IVPUSH Q8H PRN PRN Reason: Nausea Last Admin: 12/18/20 02:29 Dose: 4 mg Documented by: SEBASTIAN Sodium Chloride (Sodium Chloride 0.9% 10 Ml Syringe) 10 ml FLUSH ASDIRECTED PRN PRN Reason: Keep Vein Open Assessment/Plan Comment:: Dia Lea is a 20-year-old -0-0-1 female at 38 weeks 6 days with spontaneous labor with complicated by history of preeclampsia in first , history of depression, rubella equivocal status and s hould receive MMR vaccine after delivery, history of chlamydia infection prior to and history of asthma Refer to observation for spontaneous labor with cervical change from when she was seen in the office this week. Cervical exam on admission was 4 to 5 cm with regular contraction pattern. Artificial rupture membranes performed at this morning with return of moderate amount of clear fluid. Mother and tolerated procedure without difficulty. Cervical exam was at 6/90/-2/soft/mid position with the exam. Start Pitocin for augmentation of labor if she does not have any significant cervical change after artificial rupture membranes Continuous monitoring Place IV and have Lactated Ringer's at 125 ml/hr May have small amounts of regular diet Activity as tolerated May have epidural as desired Plans to breast-feed after delivery Patient was started on ampicillin 2 g and will have 1 g every 4 hours after for GBS prophylaxis Anticipate vaginal delivery unless otherwise indicated Bc Doll MD 8:33 AM 12/18/2020
[2020-12-18] MEDS: Lactated Ringers 1,000 ML IV SCH ×3 (08:29→12:04)
[2020-12-18] MEDS ORDERED: Bupivacaine/fentaNYL/NS 100 ML Bag EPIDUR PRN (08:48)
[2020-12-18] MEDS ORDERED: diphenhydrAMINE 50 MG/ML SDV IVPUSH PRN (08:48)
[2020-12-18] MEDS ORDERED: fentaNYL 100 MCG/2 ML SDV EPIDUR PRN (08:48)
--- NOTE | 2020-12-18 09:48 | PCM.PREANE ---
Preanesthetic Assessment - Procedure Proposed Procedure: karey - Anesthesia/Transfusion/Family Hx Anesthesia History: Prior Anesthesia Without Reaction Family History of Anesthesia Reaction: No Transfusion History: No Prior Transfusion(s) - Review of Systems General: No Symptoms Pulmonary: No Symptoms Cardiovascular: No Symptoms Gastrointestinal: Abdominal Pain (contractions) Neurological: Seizure (dehydration- last one 8 years ago) - Physical Assessment Vital Signs: Last Vital Signs Temp 98.6 F 12/18/20 00:41 Pulse 107 H 12/18/20 00:41 Resp 16 12/18/20 00:41 BP 126/70 12/18/20 00:41 Pulse Ox 99 12/18/20 00:41 Height: 5 ft 5 in Weight: 87.09 kg ASA Class: 2 Mental Status: Alert & Oriented x3 Airway Class: Mallampati = 1 Dentition: Reports: Normal Dentition Thyro-Mental Finger Breadths: 3 Mouth Opening Finger Breadths: 3 ROM/Head Extension: Full Lungs: Clear to Auscultation, Normal Respiratory Effort Cardiovascular: Regular Rate, Regular Rhythm - Lab Values: Laboratory Last Values WBC 12.49 K/mm3 (3.98-10.04) H 12/18/20 01:45 RBC 4.19 M/mm3 (3.98-5.22) 12/18/20 01:45 Hgb 10.6 gm/dl (11.2-15.7) L 12/18/20 01:45 Hct 33.3 % (34.1-44.9) L 12/18/20 01:45 MCV 79.5 fl (79.4-94.8) 12/18/20 01:45 MCH 25.3 pg (25.6-32.2) L 12/18/20 01:45 MCHC 31.8 g/dl (32.2-35.5) L 12/18/20 01:45 RDW Std Deviation 43.6 fL (36.4-46.3) 12/18/20 01:45 Plt Count 246 K/mm3 (182-369) 12/18/20 01:45 MPV 10.0 fl (9.4-12.3) 12/18/20 01:45 Neut % (Auto) 67.0 % (34.0-71.1) 12/18/20 01:45 Lymph % (Auto) 21.4 % (19.3-51.7) 12/18/20 01:45 [place] % (Auto) 8.5 % (4.7-12.5) 12/18/20 01:45 Eos % (Auto) 1.8 (0.7-5.8) 12/18/20 01:45 Baso % (Auto) 0.3 % (0.1-1.2) 12/18/20 01:45 Neut # (Auto) 8.37 K/mm3 (1.56-6.13) H 12/18/20 01:45 Lymph # (Auto) 2.67 K/mm3 (1.18-3.74) 12/18/20 01:45 [place] # (Auto) 1.06 K/mm3 (0.24-0.36) H 12/18/20 01:45 Eos # (Auto) 0.22 K/mm3 (0.04-0.36) 12/18/20 01:45 Baso # (Auto) 0.04 K/mm3 (0.01-0.08) 12/18/20 01:45 Manual Slide Review Abnormal smear 12/18/20 01:45 SARS-CoV-2 RNA (JOVANI) Negative (NEGATIVE) 12/18/20 01:42 Blood Type A POSITIVE 12/18/20 01:45 Gel Antibody Screen Negative 12/18/20 01:45 - Allergies Allergies/Adverse Reactions: Allergies Allergy/AdvReac Type Severity Reaction Status Date / Time ibuprofen [From Motrin] Allergy Anaphylactic Verified 12/18/20 03:17 Shock - Blood Blood Available: No - Acknowledgements Anesthesia Type Planned: Epidural Pt an Appropriate Candidate for the Planned Anesthesia: Yes Alternatives and Risks of Anesthesia Discussed w Pt/Guardian: Yes Pt/Guardian Understands and Agrees with Anesthesia Plan: Yes PreAnesthesia Questionnaire - Past Health History Medical/Surgical History: Denies Medical/Surgical History Cardiovascular History: Reports: None Respiratory History: Reports: Asthma Gastrointestinal History: Reports: GERD Genitourinary History: Reports: UTI, Recurrent Other Genitourinary History: UTI and yeast infection 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 Scoliosis - SUBSTANCE USE Tobacco Use Status *Q: Never Tobacco User Tobacco Use Within Last Twelve Months: No Second Hand Smoke Exposure: No Days Per Week of Alcohol Use: 0 Recreational Drug Use History: No - HOME MEDS Home Medications: Home Meds Albuterol [Proventil HFA] 2 puff INH DAILY PRN 01/03/18 [History] Vits #93/Iron Fum/FA [ Formula Tablet] 1 tab PO DAILY 01/03/18 [History] Fluticasone Propionate [Flovent HFA] 1 puff INH BID PRN 12/01/20 [History] cephALEXin [Keflex] 500 mg PO WITHMEALSANDBED 12/18/20 [History] - CURRENT (IN HOUSE) MEDS Current Meds: Current Medications Acetaminophen (Acetaminophen 325 Mg Tab) 650 mg PO Q4H PRN PRN Reason: Headache/Pain Last Admin: 12/18/20 02:29 Dose: 650 mg Documented by: Diphenhydramine HCl (Diphenhydramine 50 Mg/Ml Sdv) 25 mg IVPUSH Q6H PRN PRN Reason: pruritis Ephedrine Sulfate (Ephedrine 50 Mg/Ml Sdv) 5 mg IVPUSH ASDIRECTED PRN PRN Reason: Hypotension Fentanyl (Fentanyl 100 Mcg/2 Ml Sdv) 100 mcg EPIDUR Q3H PRN PRN Reason: Pain Last Admin: 12/18/20 09:20 Dose: 100 mcg Documented by: Fentanyl/Bupivacaine HCl (Bupivacaine/Fentanyl/Ns 100 Ml Bag) 100 ml EPIDUR ASDIRECTED PRN PRN Reason: Pain Last Admin: 12/18/20 09:21 Dose: 100 ml Documented by: Lactated Ringer's (Ringers, Lactated) 1,000 mls @ 100 mls/hr IV ASDIRECTED CRAIG Last Admin: 12/18/20 08:29 Dose: 100 mls/hr Documented by: Ampicillin Sodium 1 gm/ Sodium (Chloride) 100 mls @ 200 mls/hr IV Q4H CRAIG Last Admin: 12/18/20 06:06 Dose: 200 mls/hr Documented by: Oxytocin/Lactated Ringer's (Pitocin In Lr 10 Units/1,000 Ml) 10 unit in 1,000 mls @ 500 mls/hr IV CONTINUOUS CRAIG Nalbuphine HCl (Nalbuphine 10 Mg/1 Ml Vial) 10 mg IVPUSH Q2H PRN PRN Reason: Pain Ondansetron HCl (Ondansetron 4 Mg/2 Ml Sdv) 4 mg IVPUSH Q8H PRN PRN Reason: Nausea Last Admin: 12/18/20 02:29 Dose: 4 mg Documented by: Sodium Chloride (Sodium Chloride 0.9% 10 Ml Syringe) 10 ml FLUSH ASDIRECTED PRN PRN Reason: Keep Vein Open Discontinued Medications Ampicillin Sodium 2 gm/ Sodium (Chloride) 100 mls @ 200 mls/hr IV ONETIME ONE Stop: 12/18/20 01:47 Last Admin: 12/18/20 01:47 Dose: 200 mls/hr Documented by:
[2020-12-18] MEDS: ePHEDrine 50 MG/ML SDV IVPUSH PRN ×2 (10:09→10:25)
--- NOTE | 2020-12-18 16:01 | PCM.DEL ---
L & D Note - General Info Date of Service: 12/18/20 Mother's Due Date: 12/26/20 - Delivery Note Labor: Spontaneous, Augmented by ARM, Augmented by Oxytocin Delivery Outcome: Livebirth Delivery Method: Spontaneous Vaginal Delivery-Single Presentation: Right Occiput Anterior (KRIS) Nuchal Cord: Present (x1), Reduced (prior to delivery of shoulders) Prep: Povidone-Iodine (Betadine Anesthesia Type: Epidural Amniotic Fluid Description: Clear Episiotomy Type: None Laceration: 1st Degree (midline perineal laceration, hemostatic and not repaired) Placenta: Intact, Spontaneous Cord: 3 Vessels Estimated Blood Loss: 400 : Suctioned, Bulb Syringe, Stimulated, Warmed, [place] Used, Warmer Used Provider: Jose L Willard Score 1 min: 8 Score 5 min: 9 Second Stage Interventions: Reports: Pushing Effectively, Pushing, Stirrups/Leg Supports Delivery Comments (Free Text/Narrative):: Stage I: Dia Lea was admitted for spontaneous labor with contractions that began in the evening of 12/17/2020. On admission her cervix was dilated to 4 to 5 cm. She was GBS positive and was started on ampicillin for GBS prophylaxis. She received a total of 4 doses prior to delivery. She had artificial rupture of membranes with clear fluid. She was given an epidural for anesthesia. She was started on Pitocin for augmentation of labor. She progressed to complete and pushing. Stage II: On 12/18/2020 she had a normal vaginal delivery of a live male infant at 15:13. Apgars of 8 & 9. Weight of 3810 g (8 lbs 6.4 oz). Length of 21.25 inches. There was a single nuchal cord that was reduced prior to delivery. Infant was delivered in KRIS position. The cord was doubly clamped and cut by father the . Infant was placed on mother's abdomen initially and then taken to the warmer for further resuscitation. Stage III: She had a spontaneous delivery of an intact placenta in [place] presentation. Three vessel cord. She was given pitocin and fundal massage. She had a first-degree midline perineal laceration that measured approximately 1.5 cm it was hemostatic and not repaired. Mom and baby were stable to recovery. EBL of 400 mL. Bc Doll MD 3:58 PM 12/18/2020 - General Info Date of Service: 12/18/20 - Patient Data Vitals - Most Recent: Last Vital Signs Temp 37.0 C 12/18/20 00:41 Pulse 107 H 12/18/20 00:41 Resp 16 12/18/20 00:41 BP 126/70 12/18/20 00:41 Pulse Ox 99 12/18/20 00:41 Weight - Most Recent: 87.09 kg I&O - Last 24 Hours: Intake & Output 12/18/20 12/18/20 12/18/20 06:59 14:59 22:59 Output Total Balance @ @ Lab Results Last 24 Hours: Laboratory Results - last 24 hr 12/18/20 12/18/20 12/18/20 Range/Units 01:42 01:45 01:45 WBC 12.49 H (3.98-10.04) K/mm3 RBC 4.19 (3.98-5.22) M/mm3 Hgb 10.6 L (11.2-15.7) gm/dl Hct 33.3 L (34.1-44.9) % MCV 79.5 (79.4-94.8) fl MCH 25.3 L (25.6-32.2) pg MCHC 31.8 L (32.2-35.5) g/dl RDW Std Deviation 43.6 (36.4-46.3) fL Plt Count 246 (182-369) K/mm3 MPV 10.0 (9.4-12.3) fl Neut % (Auto) 67.0 (34.0-71.1) % Lymph % (Auto) 21.4 (19.3-51.7) % Hand % (Auto) 8.5 (4.7-12.5) % Eos % (Auto) 1.8 (0.7-5.8) Baso % (Auto) 0.3 (0.1-1.2) % Neut # (Auto) 8.37 H (1.56-6.13) K/mm3 Lymph # (Auto) 2.67 (1.18-3.74) K/mm3 Hand # (Auto) 1.06 H (0.24-0.36) K/mm3 Eos # (Auto) 0.22 (0.04-0.36) K/mm3 Baso # (Auto) 0.04 (0.01-0.08) K/mm3 Manual Slide Review Abnormal smear RPR (NONREACTIVE) SARS-CoV-2 RNA (JOVANI) Negative (NEGATIVE) Blood Type A POSITIVE Gel Antibody Screen Negative 12/18/20 Range/Units 01:45 WBC (3.98-10.04) K/mm3 RBC (3.98-5.22) M/mm3 Hgb (11.2-15.7) gm/dl Hct (34.1-44.9) % MCV (79.4-94.8) fl MCH (25.6-32.2) pg MCHC (32.2-35.5) g/dl RDW Std Deviation (36.4-46.3) fL Plt Count (182-369) K/mm3 MPV (9.4-12.3) fl Neut % (Auto) (34.0-71.1) % Lymph % (Auto) (19.3-51.7) % Hand % (Auto) (4.7-12.5) % Eos % (Auto) (0.7-5.8) Baso % (Auto) (0.1-1.2) % Neut # (Auto) (1.56-6.13) K/mm3 Lymph # (Auto) (1.18-3.74) K/mm3 Hand # (Auto) (0.24-0.36) K/mm3 Eos # (Auto) (0.04-0.36) K/mm3 Baso # (Auto) (0.01-0.08) K/mm3 Manual Slide Review RPR Non-reactive (NONREACTIVE) SARS-CoV-2 RNA (JOVANI) (NEGATIVE) Blood Type Gel Antibody Screen Med Orders - Current: Current Medications Acetaminophen (Acetaminophen 325 Mg Tab) 650 mg PO Q4H PRN PRN Reason: Headache/Pain Last Admin: 12/18/20 02:29 Dose: 650 mg Documented by: Diphenhydramine HCl (Diphenhydramine 50 Mg/Ml Sdv) 25 mg IVPUSH Q6H PRN PRN Reason: pruritis Ephedrine Sulfate (Ephedrine 50 Mg/Ml Sdv) 5 mg IVPUSH ASDIRECTED PRN PRN Reason: Hypotension Last Admin: 12/18/20 10:25 Dose: 5 mg Documented by: Fentanyl (Fentanyl 100 Mcg/2 Ml Sdv) 100 mcg EPIDUR Q3H PRN PRN Reason: Pain Last Admin: 12/18/20 09:20 Dose: 100 mcg Documented by: Fentanyl/Bupivacaine HCl (Bupivacaine/Fentanyl/Ns 100 Ml Bag) 100 ml EPIDUR ASDIRECTED PRN PRN Reason: Pain Last Admin: 12/18/20 09:21 Dose: 100 ml Documented by: Lactated Ringer's (Ringers, Lactated) 1,000 mls @ 100 mls/hr IV ASDIRECTED CRAIG Last Admin: 12/18/20 12:04 Dose: 100 mls/hr Documented by: Ampicillin Sodium 1 gm/ Sodium (Chloride) 100 mls @ 200 mls/hr IV Q4H CRAIG Last Admin: 12/18/20 14:10 Dose: 200 mls/hr Documented by: Oxytocin/Lactated Ringer's (Pitocin In Lr 10 Units/1,000 Ml) 10 unit in 1,000 mls @ 500 mls/hr IV CONTINUOUS CRAIG Oxytocin/Lactated Ringer's (Pitocin In Lr 10 Units/1,000 Ml) 10 unit in 1,000 mls @ 12 mls/hr IV TITRATE CRAIG; Protocol Last Titration: 12/18/20 13:16 Dose: 10 munits/min, 60 mls/hr Documented by: Nalbuphine HCl (Nalbuphine 10 Mg/1 Ml Vial) 10 mg IVPUSH Q2H PRN PRN Reason: Pain Ondansetron HCl (Ondansetron 4 Mg/2 Ml Sdv) 4 mg IVPUSH Q8H PRN PRN Reason: Nausea Last Admin: 12/18/20 10:13 Dose: 4 mg Documented by: Sodium Chloride (Sodium Chloride 0.9% 10 Ml Syringe) 10 ml FLUSH ASDIRECTED PRN PRN Reason: Keep Vein Open Discontinued Medications Ampicillin Sodium 2 gm/ Sodium (Chloride) 100 mls @ 200 mls/hr IV ONETIME ONE Stop: 12/18/20 01:47 Last Admin: 12/18/20 01:47 Dose: 200 mls/hr Documented by: - Exam Urinary Catheter Total Time: 0Days 5Hours - Problem List & Annotations (1) GBS bacteriuria SNOMED Code(s): 84978816 Code(s): R82.71 - BACTERIURIA Status: Acute Current Visit: Yes (2) History of maternal Chlamydia infection, currently in third trimester SNOMED Code(s): 07844735, 78290179 Code(s): O09.293 - SUPRVSN OF PREG W POOR REPRODCTV OR OBSTET HX, THIRD TRI Status: Acute Current Visit: Yes (3) History of depression SNOMED Code(s): 114095054 Code(s): Z87.59 - PERSONAL HISTORY OF COMP OF PREG, CHLDBRTH AND THE PUERP; Z86.59 - PERSONAL HISTORY OF OTHER MENTAL AND BEHAVIORAL DISORDERS Status: Acute Current Visit: Yes (4) History of depression, currently in third trimester SNOMED Code(s): 88058077 Code(s): O99.891 - OTH DISEASES AND CONDITIONS COMPLICATING ; Z86.59 - PERSONAL HISTORY OF OTHER MENTAL AND BEHAVIORAL DISORDERS Status: Acute Current Visit: Yes (5) 38 weeks gestation of SNOMED Code(s): 59712244 Code(s): Z3A.38 - 38 WEEKS GESTATION OF Status: Acute Current Visit: No (6) Rubella non-immune status, antepartum SNOMED Code(s): 738984239 Code(s): O99.891 - OTH DISEASES AND CONDITIONS COMPLICATING ; Z28.3 - UNDERIMMUNIZATION STATUS Status: Acute Current Visit: Yes (7) Vaginal delivery SNOMED Code(s): 801181409 Code(s): O80 - ENCOUNTER FOR FULL-TERM UNCOMPLICATED DELIVERY Status: Acute Current Visit: Yes (8) First degree perineal laceration during delivery SNOMED Code(s): 442422675 Code(s): O70.0 - FIRST DEGREE PERINEAL LACERATION DURING DELIVERY Status: Acute Current Visit: Yes - Problem List Review Problem List Initiated/Reviewed/Updated: Yes - My Orders Last 24 Hours: My Active Orders 12/18/20 00:41 Patient Status [ADT] Routine Vital Signs [RC] PER UNIT ROUTINE Resuscitation Status Routine 12/18/20 01:18 Nalbuphine [Nubain] 10 mg IVPUSH Q2H PRN Sodium Chloride 0.9% [Saline Flush] 10 ml FLUSH ASDIRECTED PRN 12/18/20 01:19 Patient Status [ADT] Routine Activity as Tolerated [RC] PFP Communication Order [RC] ASDIRECTED Heart Tones [RC] ASDIRECTED Notify Provider [RC] PFP Notify Provider [RC] PRN Peripheral IV Care [RC] Q4HR Vital Signs [RC] PER UNIT ROUTINE Electronic Heart Tones Ext w TOCO [WOMSER] Routine Electronic Heart Tones Internal [WOMSER] Per Unit Routine Peripheral IV Insertion Adult [OM.PC] Routine 12/18/20 01:28 Acetaminophen [TylenoL] 650 mg PO Q4H PRN 12/18/20 01:30 Lactated Ringers [Ringers, Lactated] 1,000 ml IV ASDIRECTED Oxytocin/Lactated Ringers [Pitocin in LR 10 Units/1,000 ML] 10 unit in 1,000 ml IV CONTINUOUS 12/18/20 02:09 Ondansetron [Zofran] 4 mg IVPUSH Q8H PRN 12/18/20 06:00 Ampicillin 1 gm Sodium Chloride 0.9% [Normal Saline] 100 ml IV Q4H 12/18/20 Breakfast Regular Diet [DIET] 12/18/20 10:45 Oxytocin/Lactated Ringers [Pitocin in LR 10 Units/1,000 ML] 10 unit in 1,000 ml IV TITRATE 12/18/20 15:43 Patient Status Manage Transfer [TRANSFER] Routine - Plan Plan:: Dia Lea is a 20-year-old G2 now P2-0-0-2 female status post , PPD #0 complicated by history of preeclampsia in first , history of depression, rubella equivocal status and should receive MMR vaccine after delivery, history of chlamydia infection prior to and history of asthma Admit to inpatient following normal spontaneous vaginal delivery Continue Pitocin per unit protocol following delivery of placenta and lactated Ringer's until tolerating regular diet Regular diet Vitals per unit routine Tylenol for pain control. Patient has allergy to ibuprofen. Do not plan to treat patient with ibuprofen during this stay. Assist with breast-feeding as needed Continue to monitor lochia MMR vaccine prior to discharge due to rubella equivocal status Anticipate discharge home on day #1 Bc Doll MD 3:58 PM 12/18/2020
[2020-12-18] MEDS ORDERED: Hydrocortisone Acetate 25 MG Supp RECTAL PRN (16:26)
[2020-12-18] MEDS ORDERED: Witch Hazel Medicated Pads 40/Jar TOP PRN (16:26)
[2020-12-18] MEDS ORDERED: Measles, Mumps & Rubella Vaccine 0.5 ML SDV SUBCUT ONE (16:26)
[2020-12-18] MEDS ORDERED: Magnesium Hydroxide 400 MG/5 ML Susp 30 ML Cup PO PRN (16:26)
[2020-12-18] MEDS ORDERED: Benzocaine/Menthol 20%-0.5% Spray 56 GM Canister TOP PRN (16:26)
[2020-12-18] MEDS ORDERED: Docusate Sodium 100 MG Cap PO PRN (16:26)
[2020-12-18] MEDS ORDERED: Bupivacaine 0.25% 10 ML SDV ONE (18:00)
[2020-12-18] MEDS: Acetaminophen 325 MG Tab PO PRN (20:17)
[2020-12-19] MEDS: Acetaminophen 325 MG Tab PO PRN ×2 (04:33→11:01)
[2020-12-19] MEDS ORDERED: Prenatal Multivitamin with Calcium/Folic Acid/Iron Tab PO SCH (09:00)
--- NOTE | 2020-12-19 10:18 | PCM.SN.2 ---
- Free Text/Narrative Note: Post Progress Note PPD #1 Subjective: Doing well overall. Ambulating without difficulty. Lochia minimal. Voiding without difficulty. Tolerating regular diet without nausea or vomiting. Pain controlled with oral medications. Breast-feeding with formula supplementation with minimal difficulty. She reports that she is having some soreness at her back where she had the epidural inserted but it is overall tolerable. Objective: Vitals: Vital Signs - 24 hr 12/18/20 12/19/20 20:14 02:46 Temperature 36.8 C 36.6 C Pulse, 90 80 Peripheral Respiratory 16 14 Rate Blood Pressure 127/70 112/63 O2 Sat by Pulse 97 96 Oximetry Physical Exam General: Alert and oriented, no acute distress Lungs: Clear to auscultation bilaterally Heart: Regular rate and rhythm Abdomen: Soft, minimal appropriate tenderness, non-distended, fundus midline, nontender, and at the umbilicus Extremities: Trace edema in bilateral lower extremities to mid shins, no calf tenderness bilaterally Laboratory Tests 12/18/20 12/18/20 12/18/20 Range/Units 01:42 01:45 01:45 WBC 12.49 H (3.98-10.04) K/mm3 RBC 4.19 (3.98-5.22) M/mm3 Hgb 10.6 L (11.2-15.7) gm/dl Hct 33.3 L (34.1-44.9) % MCV 79.5 (79.4-94.8) fl MCH 25.3 L (25.6-32.2) pg MCHC 31.8 L (32.2-35.5) g/dl RDW Std Deviation 43.6 (36.4-46.3) fL Plt Count 246 (182-369) K/mm3 MPV 10.0 (9.4-12.3) fl Neut % (Auto) 67.0 (34.0-71.1) % Lymph % (Auto) 21.4 (19.3-51.7) % [place] % (Auto) 8.5 (4.7-12.5) % Eos % (Auto) 1.8 (0.7-5.8) Baso % (Auto) 0.3 (0.1-1.2) % Neut # (Auto) 8.37 H (1.56-6.13) K/mm3 Lymph # (Auto) 2.67 (1.18-3.74) K/mm3 [place] # (Auto) 1.06 H (0.24-0.36) K/mm3 Eos # (Auto) 0.22 (0.04-0.36) K/mm3 Baso # (Auto) 0.04 (0.01-0.08) K/mm3 Manual Slide Review Abnormal smear RPR (NONREACTIVE) SARS-CoV-2 RNA (JOVANI) Negative (NEGATIVE) Blood Type A POSITIVE Gel Antibody Screen Negative 12/18/20 Range/Units 01:45 WBC (3.98-10.04) K/mm3 RBC (3.98-5.22) M/mm3 Hgb (11.2-15.7) gm/dl Hct (34.1-44.9) % MCV (79.4-94.8) fl MCH (25.6-32.2) pg MCHC (32.2-35.5) g/dl RDW Std Deviation (36.4-46.3) fL Plt Count (182-369) K/mm3 MPV (9.4-12.3) fl Neut % (Auto) (34.0-71.1) % Lymph % (Auto) (19.3-51.7) % [place] % (Auto) (4.7-12.5) % Eos % (Auto) (0.7-5.8) Baso % (Auto) (0.1-1.2) % Neut # (Auto) (1.56-6.13) K/mm3 Lymph # (Auto) (1.18-3.74) K/mm3 [place] # (Auto) (0.24-0.36) K/mm3 Eos # (Auto) (0.04-0.36) K/mm3 Baso # (Auto) (0.01-0.08) K/mm3 Manual Slide Review RPR Non-reactive (NONREACTIVE) SARS-CoV-2 RNA (JOVANI) (NEGATIVE) Blood Type Gel Antibody Screen ASSESSMENT: 20-year-old female -0-0-2 s/p normal vaginal delivery PPD #1, complicated by history of preeclampsia in previous , history of depression after her last , rubella equivocal status and should be offered MMR vaccine after delivery, history of asthma and not requiring treatment at this time and history of chlamydia prior to with treatment and negative test PLAN: Doing well Breast-feeding with formula supplementation with minimal difficulty. Assist as needed Lochia minimal. Continue to monitor for appropriate lochia. Continue routine care Patient offered MMR and will decide if she wants to have this prior to discharge. Anticipate discharge home today Bc Doll MD 10:16 AM 12/19/2020
--- NOTE | 2020-12-19 10:24 | PCM.DCSUM1 ---
Discharge Summary - Hospital Course Free Text/Narrative:: - General Info Date of Service: 12/18/20 Mother's Due Date: 12/26/20 - Delivery Note Labor: Spontaneous, Augmented by ARM, Augmented by Oxytocin Delivery Outcome: Livebirth Delivery Method: Spontaneous Vaginal Delivery-Single Presentation: Right Occiput Anterior (KRIS) Nuchal Cord: Present (x1), Reduced (prior to delivery of shoulders) Prep: Povidone-Iodine (Betadine Anesthesia Type: Epidural Amniotic Fluid Description: Clear Episiotomy Type: None Laceration: 1st Degree (midline perineal laceration, hemostatic and not repaired) Placenta: Intact, Spontaneous Cord: 3 Vessels Estimated Blood Loss: 400 [place]: Suctioned, Bulb Syringe, Stimulated, Warmed, [place] Used, Warmer Used Provider: Jose L Willard Score 1 min: 8 Score 5 min: 9 Second Stage Interventions: Reports: Pushing Effectively, Pushing, Stirrups/Leg Supports Delivery Comments (Free Text/Narrative):: Stage I: Dia Lea was admitted for spontaneous labor with contractions that began in the evening of 12/17/2020. On admission her cervix was dilated to 4 to 5 cm. She was GBS positive and was started on ampicillin for GBS prophylaxis. She received a total of 4 doses prior to delivery. She had artificial rupture of membranes with clear fluid. She was given an epidural for anesthesia. She was started on Pitocin for augmentation of labor. She progressed to complete and pushing. Stage II: On 12/18/2020 she had a normal vaginal delivery of a live male infant at 15:13. Apgars of 8 & 9. Weight of 3810 g (8 lbs 6.4 oz). Length of 21.25 inches. There was a single nuchal cord that was reduced prior to delivery. Infant was delivered in KRIS position. The cord was doubly clamped and cut by fat her the . Infant was placed on mother's abdomen initially and then taken to the warmer for further resuscitation. Stage III: She had a spontaneous delivery of an intact placenta in [facility]. Three vessel cord. She was given pitocin and fundal massage. She had a first-degree midline perineal laceration that measured approximately 1.5 cm it was hemostatic and not repaired. Mom and baby were stable to recovery. EBL of 400 mL. Diagnosis: Stroke: No - Discharge Data Discharge Date: 12/19/20 Discharge Disposition: Home, Self-Care 01 Condition: Good - Referral to Home Health Primary Care Physician: Bc Doll MD - Discharge Diagnosis/Problem(s) (1) GBS bacteriuria SNOMED Code(s): 91465244 ICD Code: R82.71 - BACTERIURIA Status: Acute Current Visit: Yes (2) History of maternal Chlamydia infection, currently in third trimester SNOMED Code(s): 11424830, 69002201 ICD Code: O09.293 - SUPRVSN OF PREG W POOR REPRODCTV OR OBSTET HX, THIRD TRI Status: Acute Current Visit: Yes (3) History of depression SNOMED Code(s): 162312157 ICD Code: Z87.59 - PERSONAL HISTORY OF COMP OF PREG, CHLDBRTH AND THE PUERP; Z86.59 - PERSONAL HISTORY OF OTHER MENTAL AND BEHAVIORAL DISORDERS Status: Acute Current Visit: Yes (4) History of depression, currently in third trimester SNOMED Code(s): 53881895 ICD Code: O99.891 - OTH DISEASES AND CONDITIONS COMPLICATING ; Z86.59 - PERSONAL HISTORY OF OTHER MENTAL AND BEHAVIORAL DISORDERS Status: Acute Current Visit: Yes (5) 38 weeks gestation of SNOMED Code(s): 87916457 ICD Code: Z3A.38 - 38 WEEKS GESTATION OF Status: Acute Current Visit: No (6) Rubella non-immune status, antepartum SNOMED Code(s): 008914067 ICD Code: O99.891 - OTH DISEASES AND CONDITIONS COMPLICATING ; Z28.3 - UNDERIMMUNIZATION STATUS Status: Acute Current Visit: Yes (7) Vaginal delivery SNOMED Code(s): 517130345 ICD Code: O80 - ENCOUNTER FOR FULL-TERM UNCOMPLICATED DELIVERY Status: Acute Current Visit: Yes (8) First degree perineal laceration during delivery SNOMED Code(s): 816242458 ICD Code: O70.0 - FIRST DEGREE PERINEAL LACERATION DURING DELIVERY Status: Acute Current Visit: Yes - Patient Summary/Data Complications: None Consults: None Hospital Course: Dia Lea was admitted for spontaneous labor with contractions that began in the evening of 12/17/2020. On admission her cervix was dilated to 4 to 5 cm cm. She was GBS positive and was started on ampicillin for GBS prophylaxis. She received a total of 4 doses prior to delivery. She had artificial rupture of membranes with clear fluid. She was given an epidural for anesthesia. She was started on Pitocin for augmentation of labor. She progressed to complete and began pushing. On 12/18/2020 she had a normal vaginal delivery of a live male at 15:13. Apgars of 8 and 9. Weight of 3810 g (8 pounds 6.4 ounces). Her course was uneventful. Her pain was well controlled and she had minimal lochia. She was ambulating, tolerating a regular diet and voiding normally. She was breast-feeding with formula supplementation with minimal difficulty. She was afebrile and her hematocrit was 33.3 on admission. She desired to be discharged home on the morning of PPD #1. Her blood type is A+. - Patient Instructions Diet: Regular Diet as Tolerated Activity: Apply Ice, As Tolerated Activity, Other: Nothing in the vagina for 6 weeks Driving: May Drive Today Notify Provider of: Fever, Increased Pain, Swelling and Redness, Drainage, Nausea and/or Vomiting Other/Special Instructions: Please contact your physician's office if you have heavy vaginal bleeding enough to soak a pad in less than an hour for several hours. Monitor for any signs of an infection in the breasts with severe pain or redness of the breast. - Discharge Plan *PRESCRIPTION DRUG MONITORING PROGRAM REVIEWED*: Not Applicable *COPY OF PRESCRIPTION DRUG MONITORING REPORT IN PATIENT LARRY: Not Applicable Home Medications: Home Meds Albuterol [Proventil HFA] 2 puff INH DAILY PRN 01/03/18 [History] Vits #93/Iron Fum/FA [ Formula Tablet] 1 tab PO DAILY 01/03/18 [History] Fluticasone Propionate [Flovent HFA] 1 puff INH BID PRN 12/01/20 [History] Acetaminophen [Tylenol] 650 mg PO Q6H PRN tablet 12/19/20 [Rx] Benzocaine/Menthol [Dermoplast Pain Relief [place]] 1 spray TOP ASDIRECTED PRN canister 12/19/20 [Rx] Docusate Sodium [Colace] 100 mg PO BID PRN cap 12/19/20 [Rx] Hydrocortisone Acetate [Anucort-HC] 25 mg RECTAL BID PRN supp 12/19/20 [Rx] leela Quintanilla [Tucks] 1 pad TOP ASDIRECTED PRN pad 12/19/20 [Rx] Patient Handouts: Care of a Perineal Tear, Care After Vaginal Delivery Referrals: Florencia Cee MD [Physician] - (Follow-up in 2 to 4 weeks for routine visit or earlier as needed.) - Discharge Summary/Plan Comment DC Time >30 min.: No - Patient Data Vitals - Most Recent: Last Vital Signs Temp 36.6 C 12/19/20 02:46 Pulse 80 12/19/20 02:46 Resp 14 12/19/20 02:46 BP 112/63 12/19/20 02:46 Pulse Ox 96 12/19/20 02:46 Weight - Most Recent: 87.09 kg I&O - Last 24 hours: Intake & Output 12/18/20 12/19/20 12/19/20 22:59 06:59 14:59 Intake Total 2300 Output Total 189$ Balance 422 Lab Results - Last 24 hrs: Laboratory Results - last 24 hr 12/18/20 Range/Units 01:45 RPR Non-reactive (NONREACTIVE) Med Orders - Current: Current Medications Acetaminophen (Acetaminophen 325 Mg Tab) 650 mg PO Q6H PRN PRN Reason: mild pain or fever Last Admin: 12/19/20 04:33 Dose: 650 mg Documented by: Benzocaine/Menthol (Benzocaine/Menthol 20%-0.5% [place] 56 Gm Canister) 0 gm TOP ASDIRECTED PRN PRN Reason: Perineal Comfort Measure Last Admin: 12/18/20 17:15 Dose: 1 applic Documented by: Docusate Sodium (Docusate Sodium 100 Mg Cap) 100 mg PO BID PRN PRN Reason: Constipation Hydrocortisone Acetate (Hydrocortisone Acetate 25 Mg Supp) 25 mg RECTAL BID PRN PRN Reason: Hemorrhoid pain Oxytocin/Lactated Ringer's (Pitocin In Lr 10 Units/1,000 Ml) 10 unit in 1,000 mls @ 100 mls/hr IV TITRATE CRAIG; Protocol Magnesium Hydroxide (Magnesium Hydroxide 400 Mg/5 Ml Susp 30 Ml Cup) 30 ml PO BEDTIME PRN PRN Reason: Constipation Prenat Multivit/[place]/Iron/Folic Ac ( Multivitamin With Calcium/Folic Acid/Iron Tab) 1 each PO DAILY CRAIG Witch Edie (Witch Edie Medicated Pads 40/Jar) 1 pad TOP ASDIRECTED PRN PRN Reason: Perineal Comfort Measure Last Admin: 12/18/20 17:15 Dose: 1 applic Documented by: Discontinued Medications Acetaminophen (Acetaminophen 325 Mg Tab) 650 mg PO Q4H PRN PRN Reason: Headache/Pain Last Admin: 12/18/20 02:29 Dose: 650 mg Documented by: Diphenhydramine HCl (Diphenhydramine 50 Mg/Ml Sdv) 25 mg IVPUSH Q6H PRN PRN Reason: pruritis Ephedrine Sulfate (Ephedrine 50 Mg/Ml Sdv) 5 mg IVPUSH ASDIRECTED PRN PRN Reason: Hypotension Last Admin: 12/18/20 10:25 Dose: 5 mg Documented by: Fentanyl (Fentanyl 100 Mcg/2 Ml Sdv) 100 mcg EPIDUR Q3H PRN PRN Reason: Pain Last Admin: 12/18/20 09:20 Dose: 100 mcg Documented by: Fentanyl/Bupivacaine HCl (Bupivacaine/Fentanyl/Ns 100 Ml Bag) 100 ml EPIDUR ASDIRECTED PRN PRN Reason: Pain Last Admin: 12/18/20 09:21 Dose: 100 ml Documented by: Lactated Ringer's (Ringers, Lactated) 1,000 mls @ 100 mls/hr IV ASDIRECTED CRAIG Last Admin: 12/18/20 12:04 Dose: 100 mls/hr Documented by: Ampicillin Sodium 2 gm/ Sodium (Chloride) 100 mls @ 200 mls/hr IV ONETIME ONE Stop: 12/18/20 01:47 Last Admin: 12/18/20 01:47 Dose: 200 mls/hr Documented by: Ampicillin Sodium 1 gm/ Sodium (Chloride) 100 mls @ 200 mls/hr IV Q4H CRAIG Last Admin: 12/18/20 14:10 Dose: 200 mls/hr Documented by: Oxytocin/Lactated Ringer's (Pitocin In Lr 10 Units/1,000 Ml) 10 unit in 1,000 mls @ 500 mls/hr IV CONTINUOUS CRAIG Oxytocin/Lactated Ringer's (Pitocin In Lr 10 Units/1,000 Ml) 10 unit in 1,000 mls @ 12 mls/hr IV TITRATE CRAIG; Protocol Last Titration: 12/18/20 13:16 Dose: 10 munits/min, 60 mls/hr Documented by: Measles/Mumps/Rubella Vaccine Live (Measles, Mumps & Rubella Vaccine 0.5 Ml Sdv) 0.5 ml SUBCUT .ONCE ONE Stop: 12/18/20 16:27 Last Admin: 12/18/20 20:19 Dose: Not Given Documented by: Nalbuphine HCl (Nalbuphine 10 Mg/1 Ml Vial) 10 mg IVPUSH Q2H PRN PRN Reason: Pain Ondansetron HCl (Ondansetron 4 Mg/2 Ml Sdv) 4 mg IVPUSH Q8H PRN PRN Reason: Nausea Last Admin: 12/18/20 10:13 Dose: 4 mg Documented by: Sodium Chloride (Sodium Chloride 0.9% 10 Ml Syringe) 10 ml FLUSH ASDIRECTED PRN PRN Reason: Keep Vein Open
== END 2020-12-19 15:45 | disposition home or self-care (01) | DRG 807 ==
LOC: JD.OBCHECK 00:33 → JD.OB 00:44 → JD.OBCHECK 01:19 → JD.OB 01:36 → OBSVTOIN 15:13 → JD.OB 15:14
PROVIDERS: ADMIT Obstetrics & Gynecology; ATTEND Obstetrics & Gynecology
PROC: 10E0XZZ Delivery of Products of Conception, External Approach (ICD-10-PCS; principal; 2020-12-18)
PROC: 10907ZC Drainage of Amniotic Fluid, Therapeutic from Products of Conception, Via Natural or Artificial Opening (ICD-10-PCS; 2020-12-18)
PROC: 3E0R3BZ Introduction of Anesthetic Agent into Spinal Canal, Percutaneous Approach (ICD-10-PCS; 2020-12-18)
DX: O99.824 Streptococcus B carrier state complicating childbirth (principal); Z37.0 Single live birth; O99.52 Diseases of the respiratory system complicating childbirth; J45.909 Unspecified asthma, uncomplicated; Z3A.38 38 weeks gestation of pregnancy; O69.81X0 Labor and delivery complicated by cord around neck, without compression, not applicable or unspecified; O70.0 First degree perineal laceration during delivery; O99.62 Diseases of the digestive system complicating childbirth; K21.9 Gastro-esophageal reflux disease without esophagitis; Z20.822 Contact with and (suspected) exposure to COVID-19; Z88.6 Allergy status to analgesic agent; Z87.440 Personal history of urinary (tract) infections
CPT/HCPCS: 01967; 36415; 51702; 59025; 59409; 85025; 86592; 86850; 86900; 86901; A9270-GY; J0290; J2405; J2590; J3010; J3490; J7120; U0002